=== PATIENT | male | born 1990 | race Caucasian/White ===

== ENCOUNTER → 2023-11-20 07:21 | Outpatient (REF) | payer BC, SELFPAY | LOC: MRI 3T 07:21 | PROVIDERS: ATTENDING PHYSICIAN Nurse Practitioner Adult Health; FAMILY PHYSICIAN Nurse Practitioner | DX: Z18.10 Retained metal fragments, unspecified (principal); G51.8 Other disorders of facial nerve | CPT/HCPCS: 70030; 70553; A9575 ==

== ENCOUNTER → 2023-12-04 | Outpatient (REF) | payer BC, SELFPAY | LOC: DHSLP | PROVIDERS: ATTENDING PHYSICIAN Otolaryngology; FAMILY PHYSICIAN Nurse Practitioner | DX: G47.33 Obstructive sleep apnea (adult) (pediatric) (principal); R06.83 Snoring; J33.0 Polyp of nasal cavity; R09.81 Nasal congestion; J34.1 Cyst and mucocele of nose and nasal sinus; M79.2 Neuralgia and neuritis, unspecified | CPT/HCPCS: 95806 ==

== ENCOUNTER 2023-12-31 12:33 | Emergency (ER) | payer BC, SELFPAY ==
[2023-12-31 12:35] VITALS: BP 144/101
[2023-12-31 14:12] LABS: % Basophils 0.7 % (0-2); % Eosinophils 1.2 % (0-6); % Immature Granulocytes 0.3 % (0-0.5); % Lymphocytes 19.1 % (20.5-51.1); % Neutrophils 72.7 % (42.2-75.2); Absolute Eosinophils 0.1 10^3/uL (0-0.7); Absolute Lymphocytes 1.1 10^3/uL (1.2-3.4); Absolute Monocytes 0.4 10^3/uL (0.1-0.6); Absolute Neutrophils 4.3 10^3/uL (1.4-6.5); Hematocrit 43.9 % (39.0-52.0); Hemoglobin 15.8 g/dL (13.0-18.0); Mean Corpuscular Hgb 30.7 pg (27.0-31.0); Mean Corpuscular Volume 85.4 fL (80.0-94.0); Nucleated Red Blood Cells % 0 % (-); Platelet Count 275 10^3/uL (130-400); Red Blood Cell Count 5.14 10^6/uL (4.70-6.10); Red Cell Dist. Width 12.2 % (11.5-14.5)
[2023-12-31 14:31] LABS: ALT (SGPT) 20 U/L (0-50); AST (SGOT) 21 U/L (17-59); Albumin 4.9 g/dl (3.5-5.0); Alkaline Phosphatase 63 U/L (38-126); Blood Urea Nitrogen 13 mg/dl (9-20); Carbon Dioxide 28 mmol/L (22-30); Chloride 101 mmol/L (98-107); Glucose 99 mg/dl (70-99); Lipase 156 U/L (23-300); Potassium 4.2 mmol/L (3.5-5.1); Sodium 137 mmol/L (135-145); Total Bilirubin 0.6 mg/dl (0.2-1.3); Total Protein 7.9 g/dl (6.3-8.2); eGFR > 60.00
--- NOTE | 2023-12-31 14:42 | ED.GENMED ---
History of Present Illness
<KOMAL Fontaine - Last Filed: 12/31/23 15:16>
General
Chief Complaint: Facial Problem
Source: patient
Exam Limitations: none
Time Seen by Provider: 12/31/23 13:07
Nursing documentation reviewed up to this point in time: agreed with
Travel History
Have you had any contact with someone who has COVID-19?: No
Do you have any symptoms of coronavirus? Fever > 100 degrees, chills, cough, shortness of breath, sore throat, loss of taste or smell, muscle aches, or headache?: No
History of Present Illness
History of Present Illness:
33 yr. old male brought to the ED for evaluation. Family with patient. Patient reports he has extreme fatigue no appetite and has lost about 20 pounds in the past 1-1/2 months. He has been followed by ENT for an encapsulated left sinus infection
and is scheduled to have surgery by Dr. Mondragon January 09. Patient reports he has never had a history of headaches in the past until 2021 when he started with migraines.
He complains of intermittent feeling the left side of his face is tingling and feels like he is drooling of the left side of his mouth but that is not new. This was all attributed to sinus infection as per ENT. He did have a brain MRI with and
without contrast ordered by neurologist October/2023 which was negative .patient has not seen his family doctor for the weight loss however has been in ERs for this fatigue. He was tested for Lyme several times and was negative.
He denies any actual fever or chills. Denies any abdominal pain. He does at times get heart burn .
He denies any actual joint pain. Denies any joint swelling. Denies rash.
Past History
<KOMAL Fontaine - Last Filed: 12/31/23 15:16>
Past History
ED Past Medical History: None
ED Past Surgical History: None
Social History
Tobacco: Non-smoker
Alcohol: None
Drug: None
Review of Systems
<KOMAL Fontaine - Last Filed: 12/31/23 15:16>
Review of Systems
Allergies reviewed?: Yes
All Other Systems: ROS reviewed and negative except as documented in HPI and ROS
Constitutional: Reports fatigue; Denies fever or chills
EENT: Reports other (left sided facial pressure (not new))
Respiratory: Reports no symptoms
Cardiac: Reports no symptoms
ABD/GI: Reports nausea; Denies abdominal pain, vomiting, diarrhea or black stools
: Reports no symptoms
Musculoskeletal: Reports no symptoms
Skin: Reports no symptoms
Phy Exam
<KOMAL Fontaine - Last Filed: 12/31/23 15:16>
General Physical Exam
General Presentation: no apparent distress
General age: appears stated age
General Skin: warm and dry
General Habitus: normal
General Mental: alert
General Hydration: appears well hydrated
Cardiovascular Exam
Cardiovascular Exam: regular rate/rhythm, no murmur and normal peripheral pulses
Pulmonary Exam
Pulmonary Exam: lungs clear and no respiratory distress
Neurological Exam
Neurological Exam: alert and oriented x3
Musculoskeletal Exam
Musculoskeletal Exam: full ROM
Skin Exam
Skin Exam: normal color and warm/dry
Psychiatric Exam
Psychiatric Exam: normal mood/affect
Course
<KOMAL Fontaine - Last Filed: 12/31/23 15:16>
Orders/Labs/Results
Orders:
Orders
12/31/23 13:52
IV Insert/Care/Rem.- Treatment PRN
Urinalysis Reflex To Culture Urgent
12/31/23 13:56
Electrocardiogram (*1) Stat
Reason for Study: Abdominal Pain
EKG- Treatment ONCE
12/31/23 14:00
Complete Blood Count/With Diff Urgent
Comprehensive Metabolic Panel Urgent
Lipase Urgent
TSH Reflex To Free T4 Urgent
12/31/23 15:10
Add On- LAB Urgent
Tests Added?: mono spot
12/31/23 15:13
Vital Signs- Treatment ONCE
Frequency: Once
Abnormal Lab Results
12/31/23
14:00
Absolute Lymphs (auto) 1.1 L 10^3/uL
(1.2-3.4)
Lymphocytes % 19.1 L %
(20.5-51.1)
12/31/23 14:00
12/31/23 14:00
Vital Signs
Initial and Last Documented VS:
Initial Vital Signs
Temp Pulse Resp BP Pulse Ox
98.4 F 99 18 144/101 99
12/31/23 12:35 12/31/23 12:35 12/31/23 12:35 12/31/23 12:35 12/31/23 12:35
Last Documented Vital Signs
Temp Pulse Resp BP Pulse Ox
98.4 F 99 18 144/101 99
12/31/23 12:35 12/31/23 12:35 12/31/23 12:35 12/31/23 12:35 12/31/23 12:35
[employer] consulted with Physician
[employer] consulted with physician?: Yes (Ant )
<Elio Cain, DO - Last Filed: 12/31/23 15:18>
Orders/Labs/Results
Orders:
Orders
12/31/23 13:52
IV Insert/Care/Rem.- Treatment PRN
Urinalysis Reflex To Culture Urgent
12/31/23 13:56
Electrocardiogram (*1) Stat
Reason for Study: Abdominal Pain
EKG- Treatment ONCE
12/31/23 14:00
Complete Blood Count/With Diff Urgent
Comprehensive Metabolic Panel Urgent
Lipase Urgent
TSH Reflex To Free T4 Urgent
12/31/23 15:10
Add On- LAB Urgent
Tests Added?: mono spot
12/31/23 15:13
Vital Signs- Treatment ONCE
Frequency: Once
Abnormal Lab Results
12/31/23
14:00
Absolute Lymphs (auto) 1.1 L 10^3/uL
(1.2-3.4)
Lymphocytes % 19.1 L %
(20.5-51.1)
12/31/23 14:00
12/31/23 14:00
Vital Signs
Initial and Last Documented VS:
Initial Vital Signs
Temp Pulse Resp BP Pulse Ox
98.4 F 99 18 144/101 99
12/31/23 12:35 12/31/23 12:35 12/31/23 12:35 12/31/23 12:35 12/31/23 12:35
Last Documented Vital Signs
Temp Pulse Resp BP Pulse Ox
98.4 F 99 18 144/101 99
12/31/23 12:35 12/31/23 12:35 12/31/23 12:35 12/31/23 12:35 12/31/23 12:35
<KOMAL Fontaine - Last Filed: 12/31/23 15:16>
MDM/Problems Addressed
Differential Diagnosis Includes:
Not limited to electrolyte abnormality, anemia, abnormal thyroid, mono, depression anxiety
MDM/Problems Addressed:
Patient is a 33-year-old male who presented to the ER complaining of feeling fatigued weight loss for the past several months. He has been on intermittent antibiotics for chronic sinus issues and is scheduled to have sinus surgery in January 09.
Patient however has no obvious other acute complaints including abdominal pain joint pain rash fever chills. Has been worked up for Lyme in the past and has been negative. He has had issues with left-sided facial tingling and migraine headaches
and has seen neurology and had a normal brain MRI as document recently.
He presents awake alert no acute distress labs unremarkable. He has a flat affect.
No acute findings on labs as documented will check mono. Patient evaluated by ED attending possible depression over being sick recently.
Pt however is stable for d/c home with outpt f/u by pcp.
will add on mono but plan to d/c home
Chronic conditions affecting care:
migraines, chronic sinus issues
<KOMAL Fontaine - Last Filed: 12/31/23 15:16>
*Pulse Oximetry
Patient hypoxic: no
*Critical Care Note
Total Time (30-74mins, 75-104mins- exclusive of procedures): Not Applicable
Data Reviewed
Review of Other/Old Records Reveals: Radiology Studies and Other (prior ED visits )
Source: patient and family
ED Attending Note
<KOMAL Fontaine - Last Filed: 12/31/23 15:16>
-
Portions of this chart may have been created with voice recognition software.� Occasional wrong word or��sound alike� substitutions may have occurred due to the inherent limitations of voice recognition software.
<Elio Cain DO - Last Filed: 12/31/23 15:18>
ED Attending Note
Patient seen and examined by attending physician: Yes
I performed the substantive portion of visit, reviewed & personally made and approve the management plan that is documented in note by myself or NOA.: Yes
ED Attending Note:
I have seen and evaluated the patient with a [id number] encounter. I have spoken to the advance practicer provider and involved in the medical history, the physical exam, medical decision making.
Evaluation and management service: agree unless noted differently below.
Results interpretation: agree unless noted differently below.
Focused HPI: 33-year-old male presenting for evaluation of general malaise. Family is concerned because he is losing weight but patient states he has no hunger. He has been on antibiotics over a month dealing with sinusitis issues. He has surgery
scheduled for next week
Physical exam: Abdomen soft and nontender. Seems depressed
Medical Decision Making: I had a long discussion with patient and family indicating that much of his symptoms are likely related to decreased p.o. intake with the weight loss and ongoing mental health issues. We discussed increased p.o. intake,
getting the surgery done next week as scheduled and following up with PCP to discuss these on going symptoms.
Discharge Plan
Departure
Patient Disposition: Home (Routine Discharge)
Date of Disposition: 12/31/23
Time of Disposition: 15:13
Patient with high blood pressure during this ER visit?: Yes
Condition: Fair
Covid-19: Not Applicable
Discharge Problem:
Fatigue
Instructions: Fatigue (DC), BLOOD PRESSURE
Prescriptions:
No Action
acetaminophen [Tylenol] 325 mg Tablet
325 mg PO BIDPRN PRN (Reason: mild pain)
sulfamethoxazole-trimethoprim 800-160 mg Tablet
1 tab PO BID
Patient Comments:
12/31/2023, pt. filled this med. on 12/19/2023 and is instructed to take one tablet BID for 14 days; per pt., he has roughly 3-4 days left to take and has one refill.
ibuprofen 200 mg Tablet
400 mg PO TIDPRN PRN (Reason: mild pain)
docusate sodium [Stool Softener] 100 mg Capsule
100 mg PO BID PRN (Reason: constipation)
omeprazole 20 mg Capsule,Delayed Release(Dr/Ec)
20 mg PO NOON
hydroxyzine HCl 25 mg tablet
25 mg PO HSPRN PRN (Reason: anxiety)
ondansetron 4 mg Tablet,Disintegrating
4 mg PO BIDPRN PRN (Reason: nausea/vomiting)
riboflavin (vitamin B2) 400 mg Tablet
400 mg PO NOON
magnesium oxide 400 mg magnesium Tablet
400 mg PO NOON
Referrals:
Patti Wiseman CRNP [Family Provider] -
Activity Restrictions/Additional Instructions:
Follow-up with family doctor in the next several days as well as your ENT specialist as scheduled.
Interventions
Interventions:
*Risk Screen - Suicide Last Done: 12/31/23 13:58
*General Assessment Last Done: 12/31/23 13:58
*Neglect/Abuse Screening Last Done: 12/31/23 13:58
ED- Neurological Assessment Last Done: 12/31/23 13:58
ED-Skin Assessment Last Done: 12/31/23 13:58
[2023-12-31 14:58] LABS: TSH Reflex To Free T4 1.13 uIU/ml (0.47-4.68)
[2023-12-31 16:01] VITALS: BP 145/81
[2023-12-31 16:21] LABS: Monotest Negative (Negative)
== END 2023-12-31 17:29 | disposition home or self-care (01) ==
LOC: EMR 12:33
PROVIDERS: Nurse Practitioner; EMERGENCY PHYSICIAN Student in an Organized Health Care Education/Training Program; FAMILY PHYSICIAN Nurse Practitioner
DX: R53.83 Other fatigue (principal); R03.0 Elevated blood-pressure reading, without diagnosis of hypertension
CPT/HCPCS: 99284; 70486; 80053; 83690; 84443; 85025; 86308

== ENCOUNTER → 2024-01-10 12:21 | Outpatient (REF) | payer BC, SELFPAY | LOC: CLAB 12:21 | PROVIDERS: ATTENDING PHYSICIAN Otolaryngology | DX: J01.20 Acute ethmoidal sinusitis, unspecified (principal); J34.2 Deviated nasal septum | CPT/HCPCS: 88304; 88311; 87070; 87075; 87102; 87147; 87205 ==